=== PATIENT | female | born 1950 | race Caucasian/White ===

== ENCOUNTER → 2024-09-04 | Outpatient (REF) | payer MEDICARE, BC ==
[~2024-09-04] MED LIST: IOPAMIDOL 370 MG/ML 100 ML INFUS..BTL INJ ONE
[2024-09-04 13:08] LABS: CREATININE, SERUM 0.84 mg/dL (0.57-1.11)
== END ==
LOC: CT 12:00 → EDSTATUS 12:00
PROVIDERS: ATTEND Otolaryngology
DX: E04.2 Nontoxic multinodular goiter (principal)
CPT/HCPCS: 36415; 70491; 82565; 84520; Q9967